=== PATIENT | male | born 1980 | race African-American/Black ===

== ENCOUNTER 2020-06-01 08:02 | Emergency (ER) | payer SELFPAY ==
[~2020-06-01] VITALS: Ht 167.6 cm; Wt 78.0 kg
--- NOTE | 2020-06-01 08:45 | ED.ADGEN ---
Past Medical History Past Medical History: Hypertension General Adult EDM: Chief Complaint: SORE THROAT HPI: HPI: Patient is a 39 year old male who arrives ambulatory to the emergency department complaining of a sore throat. Patient reports he has problems occasionally with a sore throat and that he believes it is related to his heating and cooling within his home. Patient reports his throat becomes very dry and he has pain with swallowing. Patient states however today his pain is slightly worse and he is looking for something in the form medication to address this. Patient does report to having sleep apnea as well however he is without a CPAP device. Of note the patient has elevated blood pressure has a history of hypertension however he stopped taking his medications because they do not work. He denies any chest pain. He further denies any shortness of air and states he has not had any recent illness otherwise. He is awake, alert and nontoxic- appearing. Review of Systems: Review of Systems: Constitutional: Denies fever or chills. [] Eyes: Denies change in visual acuity. [] HENT: Reports sore throat. Denies nasal congestion. [] Respiratory: Denies cough or shortness of breath. [] Cardiovascular: Denies chest pain or edema. [] GI: Denies abdominal pain, nausea, vomiting, bloody stools or diarrhea. [] : Denies dysuria. [] Musculoskeletal: Denies back pain or joint pain. [] Integument: Denies rash. [] Neurologic: Denies headache, focal weakness or sensory changes. [] Endocrine: Denies polyuria or polydipsia. [] Lymphatic: Denies swollen glands. [] Psychiatric: Denies depression or anxiety. [] Physical Exam: PE: Constitutional: Well developed, well nourished, no acute distress, non-toxic appearance. [] HENT: Mild erythema of the oropharynx. Normocephalic, atraumatic, bilateral external ears normal, oropharynx moist, no oral exudates, nose normal. [] Eyes: PERRLA, EOMI, conjunctiva normal, no discharge. [] Neck: Normal range of motion, no tenderness, supple, no stridor. [] Cardiovascular:Heart rate regular rhythm, no murmur [] Lungs & Thorax: Bilateral breath sounds clear to auscultation [] Abdomen: Bowel sounds normal, soft, no tenderness, no masses, no pulsatile masses. [] Skin: Warm, dry, no erythema, no rash. [] Back: No tenderness, no CVA tenderness. [] Extremities: No tenderness, no cyanosis, no clubbing, ROM intact, no edema. [] Neurologic: Alert and oriented X 3, normal motor function, normal sensory function, no focal deficits noted. [] Psychologic: Affect normal, judgement normal, mood normal. [] Current Patient Data: Vital Signs: Vital Signs Date Time Temp Pulse Resp B/P (MAP) Pulse Ox O2 Delivery O2 Flow Rate FiO2 06/01/20 08:38 98.6 100 16 201/106 (137) 100 Room Air 98.6 EKG: EKG: [] Heart Score: C/O Chest Pain: No Risk Factors: Risk Factors: DM, Current or recent (<one month) smoker, HTN, HLP, family history of CAD, obesity. Risk Scores: Score 0 - 3: 2.5% MACE over next 6 weeks - Discharge Home Score 4 - 6: 20.3% MACE over next 6 weeks - Admit for Clinical Observation Score 7 - 10: 72.7% MACE over next 6 weeks - Early Invasive Strategies Radiology/Procedures: Radiology/Procedures: [] Course & Med Decision Making: Course & Med Decision Making Pertinent Labs and Imaging studies reviewed. (See chart for details) The patient remains awake, alert and in no acute distress. The patient is negative for streptococcal pharyngitis which is not surprising. I do believe his symptoms are related to combination of not having his sleep apnea treated as well as possible seasonal allergies versus a viral phenomenon. Nonetheless I have encouraged the patient to follow-up with the physician of his choice to have sleep apnea addressed as well as resume his antihypertensive medication as his blood pressure remains elevated in the emergency department. The blood pressure has come down with the most recent 1 being 182/109 however I have suggested to the patient that uncontrolled hypertension may lead to heart failure, myocardial infarction, stroke and/or renal failure and should be treated seriously. The patient understands states he is in the process of obtaining a family physician now that he has employment. I have encouraged him to return with any new chest pain, shortness of air or strokelike symptoms. The patient understands and has agreed to return as needed. He is nontoxic- appearing and stable for discharge Dragon Disclaimer: Dragon Disclaimer: This electronic medical record was generated, in whole or in part, using a voice recognition dictation system. Departure Departure Impression: Primary Impression: Pharyngitis Additional Impression: Uncontrolled hypertension Disposition: 01 DC HOME SELF CARE/HOMELESS Condition: GOOD Referrals: NO PCP (PCP) Patient Instructions: Hypertension, [id number], Viral Pharyngitis Scripts Prednisone (PREDNISONE) 50 Mg Tablet 1 TAB PO DAILY for 5 Days, #5 TAB Prov: DALTON LEDBETTER DO 06/01/20 Problem Qualifiers DALTON LEDBETTER DO Jun 01, 2020 08:45
[2020-06-01] MEDS ORDERED: PRED50TA PO (09:01)
[2020-06-01 09:08] VITALS: BP 174/103
== END 2020-06-01 09:09 | disposition home or self-care (01) ==
LOC: ER 08:02
DX: J02.9 Acute pharyngitis, unspecified (principal); I10 Essential (primary) hypertension; L53.9 Erythematous condition, unspecified
CPT/HCPCS: 87070; 87880; 99283

== ENCOUNTER 2020-06-28 23:05 | Emergency (ER) | payer SELFPAY ==
[~2020-06-28 23:05] MED LIST: PRED50TA PO
[2020-06-29] MEDS ORDERED: CIPR2.5D2 OD (08:31)
== END 2020-06-29 | disposition left against medical advice (07) ==
LOC: ER 23:05
DX: H57.11 Ocular pain, right eye (principal); Z53.21 Procedure and treatment not carried out due to patient leaving prior to being seen by health care provider

== ENCOUNTER 2020-06-29 07:48 | Emergency (ER) | payer SELFPAY ==
[~2020-06-29] VITALS: Ht 167.6 cm; Wt 76.0 kg
[2020-06-29 07:57] VITALS: BP 197/114
[2020-06-29] MEDS ORDERED: TETRACAINE 0.5% OPHTH SOLUTION 4ML BOTTLE. ONE (08:23)
[2020-06-29] MEDS: TETRACAINE 0.5% OPHTH SOLUTION 4ML BOTTLE. OD ONE (08:25)
[2020-06-29] MEDS ORDERED: CIPR2.5D2 OD (08:31)
--- NOTE | 2020-06-29 08:36 | ED.ADGEN ---
Past Medical History Past Medical History: Hypertension Past Surgical History: No Surgical History Smoking Status: Current Every Day Smoker Alcohol Use: Occasionally General Adult EDM: Chief Complaint: EYE PROBLEMS HPI: HPI: Patient is a 39-year-old male who presents to the emergency room complaining of a 4-day history of right eye pain. Patient states that he subdivide with his daughter and woke up with her feet in his face 4 days ago. He states later in the day he started having some eye pain and noticed that his eye was getting red. He states the pain got significantly worse and for the first couple of days he had severe irritating eye pain. He states the pain has gotten better over the last 24 hours. He denies any significant drainage. He has been rinsing the eye out regularly. This does seem to help with his pain. He denies any kind of visual changes. He does not have any significant pain with movement of the eye. He denies getting anything in the eye. Review of Systems: Review of Systems: Complete ROS is negative unless otherwise documented in HPI Current Medications: Current Medications Medications (Trade) Dose Ordered Sig/Tee Start Time Stop Time Status Last Admin Dose Admin Ciprofloxacin (Ciloxan Ophth) 1 drop 1X ONCE 06/29/20 08:30 06/29/20 08:31 Tetracaine HCl (Tetracaine) 40 drop STK-MED ONCE 06/29/20 08:23 06/29/20 08:24 DC Allergies: Allergies: Allergies Coded Allergies Type Severity Reaction Last Updated Verified No Known Drug Allergies 06/29/20 No Physical Exam: PE: General: Awake, alert, NAD. Well Nourished, well hydrated. Cooperative HEENT: Atraumatic, EOMI, PERRL, airway patent, moist oral mucosa, right eye: Injected conjunctiva/sclera, no drainage, photophobia, no foreign bodies Neck: Supple, trachea midline GI: Soft, nondistended, nontender, no masses MSK: No obvious deformities Skin: Warm, dry, intact Neuro: A&O x3, speech NL, sensory and motor grossly intact, no focal deficits Psych: Normal affect, normal mood, not suicidal or homicidal Current Patient Data: Vital Signs: Vital Signs Date Time Temp Pulse Resp B/P (MAP) Pulse Ox O2 Delivery O2 Flow Rate FiO2 06/29/20 07:57 98.0 99 18 197/114 (141) 98.0 EKG: EKG: [] Heart Score: C/O Chest Pain: N/A Risk Factors: Risk Factors: DM, Current or recent (<one month) smoker, HTN, HLP, family history of CAD, obesity. Risk Scores: Score 0 - 3: 2.5% MACE over next 6 weeks - Discharge Home Score 4 - 6: 20.3% MACE over next 6 weeks - Admit for Clinical Observation Score 7 - 10: 72.7% MACE over next 6 weeks - Early Invasive Strategies Radiology/Procedures: Radiology/Procedures: [] Course & Med Decision Making: Course & Med Decision Making Pertinent Labs and Imaging studies reviewed. (See chart for details) Patient is a 39-year-old male who presents to the emergency room complaining of right eye pain and redness. Patient has injected sclera/conjunctiva. He does have significant pain though it is improving over time. It appears the patient likely has uveitis. We will start him on ciprofloxacin drops. We will have him follow-up with ophthalmology in the next couple of days. Patient does not have any visual changes. He does not have any signs of a hypopyon. Patient's test results and vitals while in the ED were fully reviewed and discussed with the patient. Patient is stable and at this time does not need admission to the hospital. We have discussed strict return precautions and the importance of following up with their Primary Care Physician. Patient stated understanding and was given an opportunity to ask any questions. Patient is in agreement with plan. Severino Disclaimer: Severino Disclaimer: This electronic medical record was generated, in whole or in part, using a voice recognition dictation system. Departure Departure Impression: Primary Impression: Iritis Disposition: HOME / SELF CARE / HOMELESS Condition: STABLE Referrals: NO PCP (PCP) JEAN-CLAUDE GARCIA MD Patient Instructions: Form - Excuse from Work, School, or Physical Activity, Iritis Scripts Ciprofloxacin Hcl (CIPROFLOXACIN HCL) 2.5 Ml Drops 1 DROP OD QID for 7 Days, #5 ML 0 Refills Prov: WILLIAMS IVORY MD 06/29/20 WILLIAMS IVORY MD Jun 29, 2020 08:36
[2020-06-29] MEDS: CIPROFLOXACIN 0.3% OPHTH SOLUTION 5ML BOTTLE. OD ONE (08:44)
== END 2020-06-29 08:56 | disposition home or self-care (01) ==
LOC: ER 07:48
DX: H20.8 Other iridocyclitis (principal); H57.11 Ocular pain, right eye; I10 Essential (primary) hypertension; F17.200 Nicotine dependence, unspecified, uncomplicated
CPT/HCPCS: 99283